=== PATIENT | female | born 1950 | race Caucasian/White ===

== ENCOUNTER → 2024-10-18 12:11 | Outpatient (REF) | payer MEDICARE, OTHER, SELFPAY | LOC: RCS 12:11 | PROVIDERS: ATTENDING PHYSICIAN Internal Medicine; FAMILY PHYSICIAN Internal Medicine | DX: J84.9 Interstitial pulmonary disease, unspecified (principal); J98.4 Other disorders of lung | CPT/HCPCS: 93005 ==

== ENCOUNTER 2025-01-13 09:00 | Outpatient (RCR) | payer MEDICARE, OTHER, SELFPAY | END 2025-01-17 09:44 | disposition home or self-care (01) | LOC: PURB 09:00 | PROVIDERS: ATTENDING PHYSICIAN Internal Medicine; FAMILY PHYSICIAN Internal Medicine | DX: J84.9 Interstitial pulmonary disease, unspecified (principal); J98.4 Other disorders of lung; R09.02 Hypoxemia; G47.33 Obstructive sleep apnea (adult) (pediatric) | CPT/HCPCS: G0237 ==

== ENCOUNTER → 2025-02-08 12:47 | Outpatient (REF) | payer MEDICARE, OTHER, SELFPAY | LOC: RSP 12:47 | PROVIDERS: ATTENDING PHYSICIAN Internal Medicine; FAMILY PHYSICIAN Internal Medicine | DX: J84.9 Interstitial pulmonary disease, unspecified (principal) | CPT/HCPCS: 88738; 94010; 94727; 94729 ==

== ENCOUNTER 2025-02-10 16:15 | Outpatient (RCR) | payer MEDICARE, OTHER, SELFPAY | END 2025-02-10 23:59 | disposition home or self-care (01) | LOC: PURB 16:15 | PROVIDERS: ATTENDING PHYSICIAN Internal Medicine; FAMILY PHYSICIAN Internal Medicine | DX: J98.4 Other disorders of lung (principal); G47.33 Obstructive sleep apnea (adult) (pediatric); R09.02 Hypoxemia | CPT/HCPCS: G0239 ==

== ENCOUNTER 2025-03-17 16:15 | Outpatient (RCR) | payer MEDICARE, OTHER, SELFPAY | END 2025-03-18 11:07 | disposition home or self-care (01) | LOC: PURB 16:15 | PROVIDERS: ATTENDING PHYSICIAN Internal Medicine; FAMILY PHYSICIAN Internal Medicine | DX: J98.4 Other disorders of lung (principal); G47.33 Obstructive sleep apnea (adult) (pediatric); R09.02 Hypoxemia | CPT/HCPCS: G0239 ==

== ENCOUNTER 2025-04-14 16:15 | Outpatient (RCR) | payer MEDICARE, OTHER, SELFPAY | END 2025-04-14 23:59 | disposition home or self-care (01) | LOC: PURB 16:15 | PROVIDERS: ATTENDING PHYSICIAN Internal Medicine; FAMILY PHYSICIAN Internal Medicine | DX: J98.4 Other disorders of lung (principal) | CPT/HCPCS: G0239 ==

== ENCOUNTER 2025-05-10 16:15 | Outpatient (RCR) | payer MEDICARE, OTHER, SELFPAY | END 2025-05-18 10:28 | disposition home or self-care (01) | LOC: PURB 16:15 | PROVIDERS: ATTENDING PHYSICIAN Internal Medicine; FAMILY PHYSICIAN Internal Medicine | DX: J98.4 Other disorders of lung (principal) | CPT/HCPCS: G0239 ==